=== PATIENT | male | born 1980 | race African-American/Black ===

== ENCOUNTER 2017-01-09 03:58 | Emergency (ER) | payer OTHER ==
[~2017-01-09] VITALS: Ht 177.8 cm; Wt 95.3 kg
--- NOTE | ~2017-01-09 | EKG ---
[address] [place] [address] ELECTROCARDIOGRAM REPORT Name: MEENAKSHI KEANE [id number] Admission: 01/09/17 Attend Phys: Discharge: 01/09/17 Date of : 76 Report #: [id number] THIS REPORT FOR: //name// 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
[~2017-01-09 03:58] MED LIST: AMOXICILLIN 50500 M1 PO; PROVENTIL
[2017-01-09 04:31] LABS: ABSOLUTE NEUTROPHILS 5.3 thou/uL (1.4-8.2); BASOPHILS 0.3 % (0.0-2.0); EOSINOPHILS 2.2 % (0.0-3.0); HEMATOCRIT 43.5 % (42.0-52.0); MCH 31.5 pg (26.0-34.0); MCHC 34.5 g/dL (28.0-37.0); MCV 91.3 fL (80.0-100.0); MONOCYTES 6.4 % (1.0-8.0); PLATELET COUNT 198 thou/uL (150-400); POLYS 58.1 % (36.0-66.0); RBC 4.76 mil/uL (4.50-6.00); RDW 14.2 % (10.5-14.5); WBC 9.1 thou/uL (4.0-11.0)
[2017-01-09 04:32] LABS: MANUAL DIFF NO
[2017-01-09 04:38] LABS: ANION GAP 7 mmol/L (7-16); BUN 9 mg/dL (7-18); CALCIUM 9.2 mg/dL (8.5-10.1); CHLORIDE 106 mmol/L (98-107); CO2 27 mmol/L (21-32); CREATININE 1.1 mg/dL (0.6-1.3); GLUCOSE 104 mg/dL (70-99); POTASSIUM 3.4 mmol/L (3.5-5.1); SODIUM 140 mmol/L (136-145)
[2017-01-09 04:46] LABS: TROPONIN-I < 0.04 ng/mL (<0.04-0.07)
[2017-01-09] MEDS ORDERED: PREDNISONE 20 M20 MG PO (05:26)
[2017-01-09 05:36] VITALS: BP 126/82
== END 2017-01-09 05:38 | disposition home or self-care (01) ==
LOC: ER 03:58
PROVIDERS: Emergency Medicine
DX: J45.901 Unspecified asthma with (acute) exacerbation (principal); F17.210 Nicotine dependence, cigarettes, uncomplicated; F10.99 Alcohol use, unspecified with unspecified alcohol-induced disorder

== ENCOUNTER 2017-09-17 18:09 | Emergency (ER) | payer OTHER ==
[~2017-09-17] VITALS: Ht 177.8 cm; Wt 97.5 kg
[~2017-09-17 18:09] MED LIST changes: +PREDNISONE 20 M20 MG PO
[2017-09-17 19:17] LABS: ABSOLUTE NEUTROPHILS 4.1 thou/uL (1.4-8.2); BASOPHILS 0.3 % (0.0-2.0); EOSINOPHILS 1.2 % (0.0-3.0); HEMATOCRIT 43.1 % (42.0-52.0); HEMOGLOBIN 14.6 gm/dL (14.0-18.0); LYMPHOCYTES 33.3 % (24.0-44.0); MCH 31.2 pg (26.0-34.0); MCHC 33.8 g/dL (28.0-37.0); MCV 92.3 fL (80.0-100.0); MONOCYTES 7.1 % (1.0-8.0); PLATELET COUNT 208 thou/uL (150-400); POLYS 58.1 % (36.0-66.0); RBC 4.67 mil/uL (4.50-6.00); WBC 7.1 thou/uL (4.0-11.0)
[2017-09-17 19:19] LABS: MANUAL DIFF NO
[2017-09-17 19:23] LABS: CALCIUM 9.4 mg/dL (8.5-10.1); CREATININE 1.1 mg/dL (0.7-1.3); POTASSIUM 4.1 mmol/L (3.5-5.1)
[2017-09-17] MEDS ORDERED: PREDNISONE 20 M20 MG PO (20:39)
[2017-09-17] MEDS ORDERED: VENTOLIN HFA 1818 GM INH (20:41)
[2017-09-17 20:48] VITALS: BP 138/83
== END 2017-09-17 20:50 | disposition home or self-care (01) ==
LOC: ER 18:09
PROVIDERS: Nurse Practitioner
DX: J45.909 Unspecified asthma, uncomplicated (principal); F17.210 Nicotine dependence, cigarettes, uncomplicated; F10.99 Alcohol use, unspecified with unspecified alcohol-induced disorder; Z91.018 Allergy to other foods; Z88.8 Allergy status to other drugs, medicaments and biological substances